=== PATIENT | female | born 1990 | race Caucasian/White ===

== ENCOUNTER → 2016-09-26 | Outpatient (CLI) | payer OTHER ==
[~2016-09-26] MED LIST: CHOL10002 PO; RIZA10TA20 PO
[2016-09-26 13:48] LABS: BLOOD UREA NITROGEN 12 mg/dL (7-18)
[2016-09-26 13:49] LABS: ASPARTATE AMINO TRANSFERASE 15 U/L (15-37)
[2016-09-27 13:06] LABS: THYROGLOBULIN AB <1.0 IU/mL (0.0-0.9)
== END | disposition home or self-care (01) ==
LOC: STAR 12:33
PROVIDERS: ATTEND Surgery
DX: Z01.812 Encounter for preprocedural laboratory examination (principal); E04.1 Nontoxic single thyroid nodule
CPT/HCPCS: 36415; 80053; 84432; 84703; 85025; 86800

== ENCOUNTER 2016-10-02 09:14 | Day surgery (SDC) | payer OTHER ==
[~2016-10-02] VITALS: Ht 172.7 cm; Wt 68.0 kg
[2016-10-02] MEDS ORDERED: GABAPENTIN 300 MG CAPSULE PO ONE (10:00)
[2016-10-02] MEDS ORDERED: LIDOCAINE 1%, 2ML SQ PRN (10:00)
[2016-10-02] MEDS ORDERED: ACETAMINOPHEN 500 MG TABLET PO ONE (10:00)
[2016-10-02] MEDS ORDERED: LACTATED RINGERS 1,000 ML IV SCH ×2 (10:00→11:41)
[2016-10-02] MEDS ORDERED: LIDOCAINE 1%, 2ML ONE (10:06)
[2016-10-02] MEDS ORDERED: FENTANYL PF 100 MCG/2ML ONE ×3 (10:22→11:29)
[2016-10-02] MEDS ORDERED: ONDANSETRON 2MG/ML, 2ML ONE (10:26)
[2016-10-02] MEDS ORDERED: PROPOFOL 10 MG/ML, 50ML ONE (10:26)
[2016-10-02] MEDS ORDERED: DEXAMETHASONE 4 MG/ML, 5ML ONE (10:26)
[2016-10-02 10:46] LABS: HCG UR OBC PASS
[2016-10-02] MEDS ORDERED: hydrALAzine 20 MG/ML, 1ML IV PRN (11:00)
[2016-10-02] MEDS ORDERED: HYDROmorphone 1 MG/ML, 1ML IV PRN (11:00)
[2016-10-02] MEDS ORDERED: LABETALOL 5MG/ML, 20ML IV PRN (11:00)
[2016-10-02] MEDS ORDERED: ONDANSETRON 2MG/ML, 2ML IVPush PRN ×2 (11:00→12:00)
[2016-10-02] MEDS ORDERED: MEPERIDINE/PF 25MG/0.5ML IVPush PRN (11:00)
[2016-10-02] MEDS ORDERED: OXYcodone 5 MG/5 ML ORAL.SOL UDC PO PRN (11:00)
[2016-10-02] MEDS ORDERED: OXYcodone 5 MG/5 ML ORAL.SOL UDC ONE (11:29)
[2016-10-02] MEDS: FENTANYL PF 100 MCG/2ML IV PRN ×3 (11:30→12:01)
[2016-10-02] MEDS ORDERED: HYDROmorphone 2 MG/ML, 1ML IVPush PRN (12:00)
[2016-10-02] MEDS ORDERED: DIPHENHYDRAMINE 50 MG/ML, 1ML IVPush PRN (12:00)
[2016-10-02] MEDS ORDERED: OXYcodone/APAP 5/325MG TABLET PO PRN (12:00)
== END 2016-10-02 14:40 | disposition home or self-care (01) ==
LOC: OUT 09:14
PROVIDERS: ATTEND Surgery
DX: D34 Benign neoplasm of thyroid gland (principal); Z82.49 Family history of ischemic heart disease and other diseases of the circulatory system
CPT/HCPCS: 60200; 81025; 88307; 95865; 95940; C1729; C1760; J1100; J2405; J2704; J3010; J3490; J7120